=== PATIENT | male | born 2000 | race Caucasian/White ===

== ENCOUNTER 2019-01-15 14:14 | Emergency (ER) | payer OTHER, SELFPAY ==
[2019-01-15 14:18] VITALS: BP 139/81; PULSE 104; RESP 16; TEMP 37.3; O2SAT 99
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
[2019-01-15 14:50] VITALS: BP 139/81; PULSE 104; RESP 16; TEMP 37.3; O2SAT 99
== END 2019-01-15 14:50 | disposition home or self-care (01) ==
LOC: ER 15:05
PROVIDERS: Emergency Provider Nurse Practitioner Family; PCP Nurse Practitioner Family
DX: S90.811A Abrasion, right foot, initial encounter (principal); S91.332A Puncture wound without foreign body, left foot, initial encounter; W45.0XXA Nail entering through skin, initial encounter
CPT/HCPCS: 99283

== ENCOUNTER 2019-01-17 06:32 | Emergency (ER) | payer OTHER, SELFPAY ==
[2019-01-17 06:41] VITALS: BP 110/81; PULSE 81; RESP 16; TEMP 36.8; O2SAT 97
--- NOTE | 2019-01-17 06:48 | W.ED.GENAD ---
Discharge Plan Disposition Patient Disposition: HOME Condition: Good Discharge Details Chief Complaint: RashLesion Clinical Impression: Tick bite with subsequent removal of tick Primary Care Provider: Porsha Swanson ED Provider: Jordan Lloyd Meds and New Rx's Prescriptions: Continued dextroamphetamine-amphetamine [Adderall XR] 20 mg Capsule,Extended Release 24hr 20 mg PO BID RF: 0 hydroxyzine HCl 25 mg Tablet 25 mg PO PRNRF: 0 ciprofloxacin HCl 500 mg tablet 500 mg PO Q12H 3 Days Qty: 6 RF: 0 cephalexin 500 mg tablet 500 mg PO TID 3 Days Qty: 9 RF: 0 Discharge Instructions Instructions: Tick Bite (ED) Additional Instructions: Watch for signs of infection including local infection at the bite as well as systemic infection which would include fever, rash, joint aches, muscle aches, headache. See your primary care doctor or return to ED if problems Referrals: Porsha Swanson [Primary Care Provider] - Discharge Data Discharge Date/Time-TO BE ENTERED AT DEPARTURE: 01/17/19 07:04 Medical Decision Making Tick removed here with tick removal tool without difficulty. Examined under microscope and found to be blacklegged (deer) tick. Patient instructed on what to watch for in terms of local as well as systemic infection. Area cleaned with alcohol. Patient discharged home. HPI General Mode of arrival: ambulatory. Date/Time Provider Initiated Documentation: 01/17/19 06:47. Limitations to Documentation: no limitations. Information obtained by: patient. HPI Narrative: Patient presents to ED with a tick on anterior right shoulder. He noticed it this morning. He has been unable to disengage/remove it. He presents to ED. He has no other symptoms or complaints. Related Data Home Medications Medication Instructions Recorded Confirmed cephalexin 500 mg PO TID 3 Days #9 tab 01/15/19 01/17/19 ciprofloxacin HCl 500 mg PO Q12H 3 Days #6 tab 01/15/19 01/17/19 dextroamphetamine-amphetamine 20 mg PO BID 01/15/19 01/17/19 [Adderall XR] hydroxyzine HCl 25 mg PO PRN 01/15/19 Previous Rx's Medication Instructions Recorded cephalexin 500 mg PO TID 3 Days #9 tab 01/15/19 ciprofloxacin HCl 500 mg PO Q12H 3 Days #6 tab 01/15/19 Allergies Allergy/AdvReac Type Severity Reaction Status Date / Time bupropion [From Wellbutrin] Allergy Unverified 01/17/19 06:44 fluoxetine [From Prozac] Allergy Unverified 01/17/19 06:44 General Stated Complaint: RashLesion BRANDON: 5 Review of Systems Constitutional Denies fever(s), Denies headache(s) and Denies malaise ENT Denies headache(s) Integumentary/Breasts Denies erythema and Denies rash Neurologic Denies headache(s) [facility] Medical History ADHD (Chronic) Social History Smoking/Tobacco Use Status: Current every day Tobacco Type: cigarettes Alcohol Intake: current Alcohol Intake frequency: a few times a month Drug use: Occasionally Substance use type: marijuana Do you feel safe at home: Yes Do you feel safe in your relationship?: Yes Exam Const General: cooperative and no acute distress Orientation: alert and oriented x3 Skin Other: Small tick found on the right anterior shoulder. No surrounding erythema or discoloration of skin. Neuro General: alert, oriented x3, gait normal and no focal motor deficits Speech: speech normal Gait: normal gait Course Vital Signs Temperature 98.2 F 01/17/19 06:41 Pulse 81 01/17/19 06:41 Respiratory Rate 16 01/17/19 06:41 Blood Pressure 110/81 01/17/19 06:41 Pulse Oximetry 97 01/17/19 06:41 Temperature 98.2 F 01/17/19 06:41 Temperature Source Temporal Artery Scan 01/17/19 06:41 Pulse 81 01/17/19 06:41 Respiratory Rate 16 01/17/19 06:41 Respiratory Effort Non-Labored 01/17/19 06:42 Blood Pressure 110/81 01/17/19 06:41 Blood Pressure Position Sitting 01/17/19 06:41 Pulse Oximetry 97 01/17/19 06:41 Oxygen Delivery Method Room Air 01/17/19 06:41 Oxygen Flow Rate 0 01/17/19 06:41 Pain Level 1 01/17/19 06:41
--- NOTE | 2019-01-17 06:57 | ED.GENADUL_ITS ---
Discharge Plan Disposition Patient Disposition: HOME Condition: Good Discharge Details Chief Complaint: RashLesion Clinical Impression: Tick bite with subsequent removal of tick Primary Care Provider: Porsha Swanson ED Provider: Jordan Lloyd Meds and New Rx's Prescriptions: Continued dextroamphetamine-amphetamine [Adderall XR] 20 mg Capsule,Extended Release 24hr 20 mg PO BID RF: 0 hydroxyzine HCl 25 mg Tablet 25 mg PO PRNRF: 0 ciprofloxacin HCl 500 mg tablet 500 mg PO Q12H 3 Days Qty: 6 RF: 0 cephalexin 500 mg tablet 500 mg PO TID 3 Days Qty: 9 RF: 0 Discharge Instructions Instructions: Tick Bite (ED) Additional Instructions: Watch for signs of infection including local infection at the bite as well as systemic infection which would include fever, rash, joint aches, muscle aches, headache. See your primary care doctor or return to ED if problems Referrals: Porsha Swanson [Primary Care Provider] - Discharge Data Discharge Date/Time-TO BE ENTERED AT DEPARTURE: 01/17/19 07:04 Medical Decision Making Tick removed here with tick removal tool without difficulty. Examined under microscope and found to be blacklegged (deer) tick. Patient instructed on what to watch for in terms of local as well as systemic infection. Area cleaned with alcohol. Patient discharged home. HPI General Mode of arrival: ambulatory . Date/Time Provider Initiated Documentation: 01/17/19 06:47 . Limitations to Documentation: no limitations . Information obtained by: patient . HPI Narrative: Patient presents to ED with a tick on anterior right shoulder. He noticed it this morning. He has been unable to disengage/remove it. He presents to ED. He has no other symptoms or complaints. Related Data Home Medications Medication Instructions Recorded Confirmed cephalexin 500 mg PO TID 3 Days #9 tab 01/15/19 01/17/19 ciprofloxacin HCl 500 mg PO Q12H 3 Days #6 tab 01/15/19 01/17/19 dextroamphetamine-amphetamine 20 mg PO BID 01/15/19 01/17/19 [Adderall XR] hydroxyzine HCl 25 mg PO PRN 01/15/19 Previous Rx's Medication Instructions Recorded cephalexin 500 mg PO TID 3 Days #9 tab 01/15/19 ciprofloxacin HCl 500 mg PO Q12H 3 Days #6 tab 01/15/19 Allergies Allergy/AdvReac Type Severity Reaction Status Date / Time bupropion [From Wellbutrin] Allergy Unverified 01/17/19 06:44 fluoxetine [From Prozac] Allergy Unverified 01/17/19 06:44 General Stated Complaint: RashLesion BRANDON: 5 Review of Systems Constitutional Denies fever(s), Denies headache(s) and Denies malaise ENT Denies headache(s) Integumentary/Breasts Denies erythema and Denies rash Neurologic Denies headache(s) [facility] Medical History ADHD (Chronic) Social History Smoking/Tobacco Use Status: Current every day Tobacco Type: cigarettes Alcohol Intake: current Alcohol Intake frequency: a few times a month Drug use: Occasionally Substance use type: marijuana Do you feel safe at home: Yes Do you feel safe in your relationship?: Yes Exam Const General: cooperative and no acute distress Orientation: alert and oriented x3 Skin Other: Small tick found on the right anterior shoulder. No surrounding erythema or discoloration of skin. Neuro General: alert, oriented x3, gait normal and no focal motor deficits Speech: speech normal Gait: normal gait Course Vital Signs Temperature 98.2 F 01/17/19 06:41 Pulse 81 01/17/19 06:41 Respiratory Rate 16 01/17/19 06:41 Blood Pressure 110/81 01/17/19 06:41 Pulse Oximetry 97 01/17/19 06:41 Temperature 98.2 F 01/17/19 06:41 Temperature Source Temporal Artery Scan 01/17/19 06:41 Pulse 81 01/17/19 06:41 Respiratory Rate 16 01/17/19 06:41 Respiratory Effort Non-Labored 01/17/19 06:42 Blood Pressure 110/81 01/17/19 06:41 Blood Pressure Position Sitting 01/17/19 06:41 Pulse Oximetry 97 01/17/19 06:41 Oxygen Delivery Method Room Air 01/17/19 06:41 Oxygen Flow Rate 0 01/17/19 06:41 Pain Level 1 01/17/19 06:41
[2019-01-17 07:03] VITALS: BP 110/81; PULSE 81; RESP 16; TEMP 36.8; O2SAT 97
== END 2019-01-17 07:04 | disposition home or self-care (01) ==
PROVIDERS: Emergency Provider Emergency Medicine; PCP Nurse Practitioner Family
DX: S40.261A Insect bite (nonvenomous) of right shoulder, initial encounter (principal); W57.XXXA Bitten or stung by nonvenomous insect and other nonvenomous arthropods, initial encounter
CPT/HCPCS: 99282

== ENCOUNTER 2019-04-28 03:54 | Emergency (ER) | payer OTHER, SELFPAY ==
[2019-04-28 03:59] VITALS: PULSE 113; RESP 20; O2SAT 97
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
[2019-04-28] MEDS: HYDROmorphone 2 MG/ML VIAL 1 MG IM (04:19)
[2019-04-28] MEDS: Bacitracin 30 GM TUBE TP (04:29)
[2019-04-28] MEDS: HYDROcodone 5/Acetaminophen 325 TAB PO ×2 (04:34→04:37)
[2019-04-28 05:03] VITALS: PULSE 113; RESP 20; O2SAT 97
== END 2019-04-28 04:56 | disposition home or self-care (01) ==
PROVIDERS: Emergency Provider Emergency Medicine; PCP Nurse Practitioner Family
DX: T23.261A Burn of second degree of back of right hand, initial encounter (principal); T23.262A Burn of second degree of back of left hand, initial encounter; T23.251A Burn of second degree of right palm, initial encounter; T23.252A Burn of second degree of left palm, initial encounter; T31.0 Burns involving less than 10% of body surface; X08.8XXA Exposure to other specified smoke, fire and flames, initial encounter
CPT/HCPCS: 16020

== ENCOUNTER 2019-08-27 17:35 | Outpatient (REF) | payer OTHER, SELFPAY ==
[2019-08-29 11:05] LABS: HIV-1/2 Ag & Ab Screen Negative (Negative); Hepatitis C Ab w Rflx HCV PCR Negative (Negative)
[2019-08-29 12:04] LABS: Syphilis Serology (RPR) Negative (Negative)
[2019-08-29 15:18] LABS: Chlamydia Result Negative (Negative); GC Result Negative (Negative)
== END 2019-08-27 17:55 ==
LOC: NCHCN 17:35
PROVIDERS: PCP Nurse Practitioner Family; Visit Provider Specialist/Technologist Athletic Trainer
DX: Z11.59 Encounter for screening for other viral diseases (principal); Z11.3 Encounter for screening for infections with a predominantly sexual mode of transmission; Z11.4 Encounter for screening for human immunodeficiency virus [HIV]
CPT/HCPCS: 86803; 87389; 87491; 87591; 86592

== ENCOUNTER 2021-01-21 18:51 | Emergency (ER) | payer OTHER, SELFPAY ==
[2021-01-21 18:56] VITALS: BP 116/69; PULSE 97; RESP 14; TEMP 36.7; O2SAT 98
--- NOTE | 2021-01-21 19:00 | ED.GENADUL_ITS ---
Discharge Plan Disposition Patient Disposition: HOME Condition: Good Discharge Details Clinical Impression: Acute chest wall pain Primary Care Provider: Porsha Swanson ED Provider: Denise Cadena Home Meds and New Rx's Prescriptions: Continued bacitracin 500 unit/gram ointment 1 applic TP Q12H Qty: 30 RF: 0 hydrocodone-acetaminophen 5-325 mg tablet 1 - 2 tab PO Q6H PRN (Reason: pain) Qty: 10 RF: 0 Discharge Instructions Instructions: Chest Wall Pain (ED) Additional Instructions: Encourage deep breathing. Please avoid the twisting motions that cause her discomfort. You may use Tylenol and/or ibuprofen as needed for discomfort. You may try topical options such as lidocaine patches to help with pain. If you develop shortness of breath, difficulty breathing, abdominal pain, nausea/vomiting or other new/worsening symptom please seek care urgently once again. Please follow-up with primary care in the next 1 to 2 weeks for reevaluation. Referrals: Porsha Swanson [Primary Care Provider] - Medical Decision Making Patient is a pleasant 20-year-old male, accompanied by his mom, with chief complaint of left anterior lower rib pain. Reports that this is been inter mittent for the past 3 days and only with extension or rotation of this area. Denies any pain with deep inspiration. Patient is a smoker. No increase shortness of breath. Denies any cough. States that he did fall a few days ago. Does not believe that he injured himself in the area at that time. Denies any nausea or vomiting. No hematuria. Denies any change in bowel or bladder habits. Continues to work but reports that this does cause increased discomfort. On exam, patient appears nontoxic. Vital signs are stable. Patient denies any pain at this time when immobile. States the pain can be a max of 8 with provocative movements. Lungs are clear, no crepitus. No palpable defect or deformity. Abdomen is benign. No left upper quadrant pain. No CVA tenderness. Patient patient's history and exam is most consistent with musculoskeletal origin of his discomfort. He is having absolutely no pain with deep inspiration or when at rest. Pain is only with specified movements. His history and exam is not consistent with abdominal pathologies such as pancreatitis, pyelonephritis, kidney stone, ruptured or ischemic spleen. Patient is not hypoxic, he is PERC negative. Has not had infectious symptoms. Plan for x-ray, particularly given the patient's recent fall, to evaluate for any fracture. He declines any analgesics at this time. FINDINGS: Bones/joints: Normal. Soft tissues: Normal. IMPRESSION: No acute findings. Findings with the patient his mother. Patient I did discuss blood work. However, he does agree with my assessment that this is most likely musculoskelet al as it really is only given when the patient turns, particular to the right. He states that he is able to lift and continue to work. We did discuss a work note but he is declined. We did discuss return precautions, in particular symptoms of abdominal pathology, pulmonary pathology or worsening discomfort. Advise follow-up with primary care in the next 1 to 2 weeks for reevaluation. All questions and concerns were addressed and he is in agreement with this plan. HPI General Mode of arrival: ambulatory . Date/Time Provider Initiated Documentation: 01/21/21 18:51 . Limitations to Documentation: no limitations . Information obtained by: patient, family (mom) and RN notes reviewed . History of Present Illness 20 year old M presents to the emergency department with the chief complaint of rib pain, described as mild (reports no pain currently, with rotational movement to the right pain 8/10), Quality is described as aching, and is localized to the chest. Patient reports no radiation. Patient started experiencing this day(s) (3) and it has been intermittent. Immobilization improves symptom(s), Movement worsens symptoms . Patient notes no other symptoms.. Patient did receive the following treatments prior to arrival, none Related Data Home Medications Medication Instructions Recorded Confirmed bacitracin 1 applic TP Q12H #30 gm 04/28/19 hydrocodone-acetaminophen 1 - 2 tab PO Q6H PRN #10 tab 04/28/19 Previous Rx's Medication Instructions Recorded bacitracin 1 applic TP Q12H #30 gm 04/28/19 hydrocodone-acetaminophen 1 - 2 tab PO Q6H PRN #10 tab 04/28/19 Allergies Allergy/AdvReac Type Severity Reaction Status Date / Time bupropion [From Wellbutrin] Allergy Unverified 01/21/21 18:59 fluoxetine [From Prozac] Allergy Unverified 01/21/21 18:59 General Stated Complaint: Orthopedic BRANDON: 3 Review of Systems Constitutional Constitutional: Reports as per HPI, Denies chills, Denies fatigue, Denies fever(s) and Denies headache(s) ENT Ears, Nose, Mouth, and Throat: Denies headache(s) Cardiovascular Cardiovascular: Reports as per HPI, Reports chest pain (chest wall pain with rotation) and Denies dyspnea Respiratory Respiratory: Reports as per HPI, Denies cough, Denies hemoptysis, Denies pain on inspiration, Denies pain with cough and Denies dyspnea Gastrointestinal Gastrointestinal: Reports as per HPI, Denies abdominal pain, Denies change in bowel habits, Denies cramping, Denies nausea and Denies vomiting Genitourinary Genitourinary: Denies system reviewed and no additional complaints, except as documented (patient denies any change in urinary habits), Denies hematuria and Denies flank pain Musculoskeletal Musculoskeletal: Reports as per HPI and Denies back pain Integumentary/Breasts Skin/Breast: Reports as per HPI and Denies rash Neurologic Neurologic: Reports as per HPI and Denies headache(s) Endocrine Endocrine: Denies fatigue [facility] Medical History (Updated 01/21/21 @ 20:14 by GENEVA Sorto) ADHD Social History Smoking/Tobacco Use Status: Current every day Tobacco Type: cigarettes Smoking risk assessment performed?: Yes Alcohol Intake: current Alcohol Intake frequency: a few times a month Drug use: Occasionally Substance use type: marijuana Do you feel safe at home: Yes Do you feel safe in your relationship?: Yes Exam Const General: cooperative, healthy appearing, comfortable, no acute distress and well developed Nutritional Appearance: average body habitus and well nourished Orientation: alert and awake [facility] Head: normal to inspection Mouth: moist mucous membranes Chest Chest: normal inspection of the chest, normal palpation of entire chest wall, no crepitus, no localized rib tenderness and No rash Chest/axillae images: 1. area of discomfort. No pain elicited with palpation Resp Effort & Inspection: normal respiratory effort, able to speak in complete sentences and no respiratory distress Auscultation: clear to auscultation bilaterally, no rales, no rhonchi and no wheezes Cardio Rate: regular rate Rhythm: regular rhythm Heart Sounds: S1 normal and S2 normal GI Inspection: normal to inspection Palpation: soft, no hepatosplenomegaly, not firm, no guarding, no hernias, no masses, no pulsatile masses, not rigid and nontender Percussion: normal to percussion Auscultation: normal bowel sounds Back/Spine/Pelvis Back: no CVA tenderness Skin General skin exam: no rashes or lesions noted Trauma: no lacerations or abrasions Neuro General: patient alert and patient awake Cognition: normal cognition Speech: speech normal Gait: normal gait Psych Appearance: grossly normal and well kempt Mental Status: mental status grossly normal Speech and Movement: speech and movement normal Course Vital Signs Vital signs: Vital Signs Temperature 36.7 C 01/21/21 18:56 Pulse 97 H 01/21/21 18:56 Respiratory Rate 14 01/21/21 18:56 Blood Pressure 116/69 01/21/21 18:56 Pulse Oximetry 98 01/21/21 18:56 Temperature 36.7 C 01/21/21 18:56 Temperature Source Skin 01/21/21 18:56 Pulse 97 H 01/21/21 18:56 Respiratory Rate 14 01/21/21 18:56 Blood Pressure 116/69 01/21/21 18:56 Blood Pressure Position Sitting 01/21/21 18:56 Pulse Oximetry 98 01/21/21 18:56 Oxygen Delivery Method Room Air 01/21/21 18:56 Oxygen Flow Rate 0 01/21/21 18:56 Pain Level 8 01/21/21 18:56
--- NOTE | 2021-01-21 19:00 | DI.RAD_ITS ---
Exam(s) XR RIBS LT W PA LAT CHEST EXAM: XR RIBS LT W PA LAT CHEST CLINICAL HISTORY: low anterior left rib pain with movement TECHNIQUE: COMPARISON: No exams were available for comparison FINDINGS: PA and lateral chest and 3 additional views of the left ribs were obtained. The heart is not enlarge d. Lungs are clear and well expanded. No pleural effusion or pneumothorax. No rib fracture or othe r lesion identified. IMPRESSION: RADIATION DOSE DELIVERED: Total DLP
--- NOTE | 2021-01-21 20:06 | DI.VRAD_ITS ---
PROCEDURE INFORMATION: Exam: XR Left Ribs Exam date and time: 01/21/2021 7:13 PM Age: 20 years old Clinical indication: Other: Low anterior left rib pain with movement TECHNIQUE: Imaging protocol: XR Left ribs. Views: 2 views. COMPARISON: No relevant prior studies available. FINDINGS: Bones/joints: Normal. Soft tissues: Normal. IMPRESSION: No acute findings. PROCEDURE INFORMATION: Exam: XR Chest Exam date and time: 01/21/2021 7:13 PM Age: 20 years old Clinical indication: Other: Low anterior left rib pain with movement TECHNIQUE: Imaging protocol: XR of the chest. Views: 2 views. COMPARISON: No relevant prior studies available. FINDINGS: Lungs: Unremarkable. No consolidation. Pleural spaces: Unremarkable. No pleural effusion. No pneumothorax. Heart/Mediastinum: Unremarkable. No cardiomegaly. Bones/joints: Unremarkable. IMPRESSION: No acute findings. Dictated and Authenticated by: Peter Gracia MD. Ordering:PARRISH Walker MD
== END 2021-01-21 20:17 | disposition home or self-care (01) ==
PROVIDERS: Emergency Provider Physician Assistant; PCP Nurse Practitioner Family
DX: R07.82 Intercostal pain (principal)
CPT/HCPCS: 99283; 71046; 71100; 99284

== ENCOUNTER 2021-10-03 13:36 | Emergency (ER) | payer OTHER, SELFPAY ==
[2021-10-03 13:39] VITALS: BP 131/74; PULSE 72; RESP 18; TEMP 36.3; O2SAT 99
--- NOTE | 2021-10-03 14:00 | DI.RAD_ITS ---
Exam(s) XR TOE LT GREAT EXAM: XR TOE LT GREAT CLINICAL HISTORY: laceration. TECHNIQUE: 2D digital imaging was performed. COMPARISON: No exams were available for comparison FINDINGS: Three views of the left great toe reveal no evidence of fracture nor dislocation. No radiopaque fore ign body. No degenerative changes. No osseous lesions IMPRESSION: No significant osseous findings. DATA REPOSITORY: RADIATION DOSE DELIVERED:
--- NOTE | 2021-10-03 14:24 | DI.VRAD_ITS ---
PROCEDURE INFORMATION: Exam: XR Left Toe(s) Exam date and time: 10/03/2021 2:06 PM Age: 21 years old Clinical indication: Other: Lt great toe laceration TECHNIQUE: Imaging protocol: XR Left toes. Views: Minimum 2 views. COMPARISON: No relevant prior studies available. FINDINGS: Bones/joints: Bony alignment is anatomic without evidence for fracture or dislocation. Oblique view reveals linear laceration along the medial dorsal aspect of the great toe. No radiopaque foreign body identified. Soft tissues: See Bones/joints finding. IMPRESSION: Soft tissue injury. No evidence for fracture. Dictated and Authenticated by: Shandra Carrera MD. Ordering:LORENA Holland MD
[2021-10-03] MEDS: Lidocaine 1% Multi-Dose 50 ML VIAL (15:00)
--- NOTE | 2021-10-03 15:11 | ED.GENADUL_ITS ---
Discharge Plan Disposition Patient Disposition: HOME Condition: Stable Discharge Details Clinical Impression: Laceration of toe Primary Care Provider: Porsha Swanson ED Provider: Amalia Mcmullen Home Meds and New Rx's Prescriptions: No Action No Known Home Meds 0RF Discharge Instructions Instructions: Laceration (ED) Additional Instructions: Suture removal in 12 days Refrain from bending Wear caution Ibuprofen 600 mg every 8 hours with food as needed for pain Tylenol 650 mg every 4-6 hours as needed for discomfort Return spreading redness, fever, worsening pain Keep dry for 24 hours, do not submerge in water until the sutures are removed Change dressing every 48 hours Referrals: Prosha Swanson [Primary Care Provider] - Medical Decision Making Patient tolerated suture placement without incident X-ray did not show evidence of acute abnormality Return precautions discussed and patient understanding No indication for antibiotics at this time No evidence of neurovascular injury Range of motion intact placed in cast shoe Medical Records Medical records reviewed: Yes I reviewed the patient's medical records. Lab Data Lab results reviewed: Yes I reviewed the patient's lab results. ECG Data Prior ECG tracings: available for review HPI General Date/Time Provider Initiated Documentation: 10/03/21 14:05 . HPI Narrative: This 21-year-old male presents for laceration of his toe. States his tetanus is up-to-date. Denies any strength or sensation change. Cut it with a knife accidentally. Denies any additional injuries. Event occurred just prior to arrival. Related Data Home Medications Medication Instructions Recorded Confirmed Unknown [No Known Home Meds] 10/03/21 10/03/21 Allergies Allergy/AdvReac Type Severity Reaction Status Date / Time bupropion [From Wellbutrin] Allergy Unverified 10/03/21 13:41 fluoxetine [From Prozac] Allergy Unverified 10/03/21 13:41 General Stated Complaint: Laceration BRANDON: 4 Review of Systems All systems reviewed & are unremarkable except as noted in HPI and below PFSH All Active Problems (Updated 10/03/21 @ 15:07 by GENEVA Chauhan) Acute chest wall pain (Acute) Laceration of toe (Acute) Medical History (Updated 10/03/21 @ 15:07 by GENEVA Chauhan) ADHD Social History Smoking/Tobacco Use Status: Current every day Tobacco Type: cigarettes Smoking risk assessment performed?: Yes Alcohol Intake: current Alcohol Intake frequency: a few times a month Drug use: Occasionally Substance use type: marijuana Do you feel safe at home: Yes Do you feel safe in your relationship?: Yes Exam Const General: cooperative, comfortable and no acute distress Extrem Ankle/foot/toe images: 1. 1 inch laceration, rest capillary refill, sensation intact distally Course Vital Signs Vital signs: Vital Signs Temperature 36.3 C L 10/03/21 13:39 Pulse 72 10/03/21 13:39 Respiratory Rate 18 10/03/21 13:39 Blood Pressure 131/74 10/03/21 13:39 Pulse Oximetry 99 10/03/21 13:39 Temperature 36.3 C L 10/03/21 13:39 Temperature Source Skin 10/03/21 13:39 Pulse 72 10/03/21 13:39 Respiratory Rate 18 10/03/21 13:39 Respiratory Effort Non-Labored 10/03/21 13:42 Blood Pressure 131/74 10/03/21 13:39 Blood Pressure Position Sitting 10/03/21 13:39 Pulse Oximetry 99 10/03/21 13:39 Oxygen Delivery Method Room Air 10/03/21 13:39 Oxygen Flow Rate 0 10/03/21 13:39 Pain Level 7 10/03/21 13:39 Procedures Laceration Laceration 1: Site: lower extremity Side (If applicable): left Size (cm): 2.5 Description: linear Depth: simple, single layer Local Anesthetic: Lidocaine 1% Amount of anesthesia used (mL): 3 Number of sutures: 5 Technique: simple, interrupted
== END 2021-10-03 15:31 | disposition home or self-care (01) ==
PROVIDERS: Emergency Provider Physician Assistant; PCP Nurse Practitioner Family
DX: S91.112A Laceration without foreign body of left great toe without damage to nail, initial encounter (principal); W26.0XXA Contact with knife, initial encounter
CPT/HCPCS: 12001; 99283; 73660

== ENCOUNTER 2022-12-29 19:33 | Emergency (ER) | payer SELFPAY ==
[2022-12-29] VITALS (10 sets, daily range): BP systolic 106–129; BP diastolic 65–83; PULSE 76–99; RESP 13–29; TEMP 36.4; O2SAT 96–100
--- NOTE | 2022-12-29 19:30 | DI.RAD_ITS ---
Exam(s) XR PORTABLE CHEST AP EXAM: XR PORTABLE CHEST AP CLINICAL HISTORY: od, post narcan TECHNIQUE: 2D digital imaging was performed of the chest. One image was obtained. An AP view was ob tained. COMPARISON: CR,XR XR RIBS LT W PA LAT CHEST from 01/21/2021 FINDINGS: MEDIASTINUM: Normal. HEART: Normal. PULMONARY VASCULATURE: Normal. LUNGS: Clear. PLEURAL SPACE: No pleural effusion or pneumothorax. BONE:Within normal limits for the patient's age. OTHER FINDINGS:Normal. IMPRESSION: No acute pulmonary findings. DATA REPOSITORY: RADIATION DOSE DELIVERED:
[2022-12-29 19:48] LABS: Abs Immature Grans 0.03 10^3/uL (0.0-0.06); Absolute Basophil Count 0.04 10^3/uL (0.0-0.2); Absolute Eosinophil Count 0.09 10^3/uL (0.0-0.7); Absolute Lymphocyte Count 2.85 10^3/uL (1.2-3.4); Absolute Monocyte Count 0.86 10^3/uL (0.1-0.8); Absolute Neutrophil Count 5.99 10^3/uL (1.2-6.7); Basophils % 0.4; Eosinophils % 0.9; HCT 44.2 % (40.0-50.0); HGB 14.7 g/dL (13.5-17.5); Immature Grans % 0.3; Lymphocytes % 28.9; MCH 29.6 pg (27.0-33.0); MCHC 33.3 % (32.0-36.0); MCV 89 fL (80-95); MPV 10.3 fL (8.0-11.0); Monocytes % 8.7; Neutrophils % 60.8; Platelet Count 222 10^3/uL (130-400); RBC 4.97 10^6/uL (4.36-5.78); RDW 12.9 % (11.8-14.1); RDW-SD 42.1 fL; WBC 9.86 10^3/uL (4.4-10.8)
[2022-12-29 20:07] LABS: ALT 28 U/L (16-63); AST 26 U/L (15-37); Albumin 4.5 g/dL (3.4-5.0); Alkaline Phosphatase 92 U/L (46-116); Anion Gap 7.8 mmol/L (3-11); BUN 10 mg/dL (7-18); Bilirubin, Total 0.6 mg/dL (0.2-1.0); CO2 29.2 mmol/L (21.0-32.0); CREATININE 1.4 mg/dL (0.70-1.30); Calcium 9.4 mg/dL (8.5-10.1); Chloride 97 mmol/L (98-107); Estimated GFR 72.43 (mL/min/1.73m2); Glucose 191 mg/dL (74-106); Sodium 134 mmol/L (136-145); Total Protein 8.5 g/dL (6.4-8.2)
--- NOTE | 2022-12-29 20:41 | ED.GENADUL_ITS ---
Discharge Plan Disposition Patient Disposition: Home Condition: Improving Discharge Details Chief Complaint: DrugWithdr/MAT Clinical Impression: Overdose Primary Care Provider: Porsha Swanson ED Provider: Florentin Bustamante Home Meds and New Rx's Prescriptions: No Action No Known Home Meds Discharge Instructions Instructions: Adult Overdose (ED) Additional Instructions: Please follow-up with your primary care physician. Please return to the emergency department for any worsening symptoms Medical Decision Making 22-year-old male brought in for likely opioid overdose, found apneic and cyanotic, resuscitation underway on arrival, Narcan given in the field with immediate response, patient alert oriented maintaining airway tolerating secretions no respiratory distress. No hypoxia, normotensive, afebrile nontoxic. Patient endorses smoking marijuana and drinking some beers tonight. Collateral from bystanders believe that he may have smoked fentanyl. Patient stripped of wet clothing placed under Lowell hugger. Basic labs to be obtained, chest x-ray close reassessment. If patient remains alert oriented with no respiratory distress consider discharge home. 21: 07 patient resting comfortably no acute distress alert oriented tolerating secretions no respiratory distress. Labs imaging largely unremarkable. Patient wants to leave. Patient attempted to take out his IV. HPI General Date/Time Provider Initiated Documentation: 12/29/22 19:39 . HPI Narrative: 22-year-old male brought in by EMS for apnea in the setting of likely drug overdose. Patient found cyanotic apneic chest compressions actively being performed by bystanders, bystanders redosing patient with water to try to wake him up, patient responded to 4 mg of Narcan endorsing that he was smoking marijuana, collateral from bystanders stated that while he was smoking was likely fentanyl. Related Data Home Medications Medication Instructions Recorded Confirmed Unknown [No Known Home Meds] 10/03/21 12/29/22 Allergies Allergy/AdvReac Type Severity Reaction Status Date / Time bupropion [From Wellbutrin] Allergy Unverified 12/29/22 19:45 fluoxetine [From Prozac] Allergy Unverified 12/29/22 19:45 General Stated Complaint: DrugWithdr/MAT BRANDON: 2 Review of Systems Narrative: Review of Systems Constitutional: Altered mental status Eyes: negative ENT: negative Cardiovascular: negative Respiratory: Respiratory arrest Gastrointestinal: negative : negative Musculoskeletal: negative Skin: negative Neurologic: negative Psych: negative PFSH All Active Problems (Updated 12/29/22 @ 21:09 by Florentin Bustamante MD) Acute chest wall pain (Acute) Overdose (Acute) Medical History (Updated 12/29/22 @ 21:09 by Florentin Bustamante MD) ADHD Social History Smoking/Tobacco Use Status: Current every day Tobacco Type: cigarettes Smoking risk assessment performed?: Yes Alcohol Intake: current Alcohol Intake frequency: a few times a month Drug use: Daily Substance use type: marijuana Do you feel safe at home: Yes Do you feel safe in your relationship?: Yes Exam Narrative Exam Narrative: Physical Examination General: alert, awake, cooperative, shivering HEENT: normocephalic, atraumatic; PERRL, EOM intact, conjunctiva normal; no nasal discharge; moist mucous membranes, oral and pharyngeal mucosa normal, tolerating secretions Neck: supple, trachea midline; full ROM Chest: normal to inspection Respiratory: normal respiratory effort, speaking in full sentences, clear to auscultation, no wheezing, rales or rhonchi Cardiac: regular rate, regular rhythm, S1S2 intact, no murmurs rubs or gallops GI: abdomen soft, non-tender, non-distended; no palpable mass or hepatosplenomegaly Skin: no lesions, rashes or trauma appreciated; cool to the touch Neuro: AAOx3, normal speech, moving all extremities Psych: Appropriate mood and affect Course Vital Signs Vital signs: Vital Signs Temperature 36.4 C L 12/29/22 19:36 Pulse 77 12/29/22 19:36 Respiratory Rate 17 12/29/22 19:36 Blood Pressure 129/83 12/29/22 19:36 Pulse Oximetry 100 12/29/22 19:36 Temperature 36.4 C L 12/29/22 19:36 Temperature Source Temporal Artery Scan 12/29/22 19:36 Pulse 77 12/29/22 19:36 Respiratory Rate 17 12/29/22 19:36 Respiratory Effort Normal 12/29/22 19:36 Respiratory Pattern Bradypnea 12/29/22 19:46 Blood Pressure 129/83 12/29/22 19:36 Blood Pressure Position Supine 12/29/22 19:36 Pulse Oximetry 100 12/29/22 19:36 Oxygen Delivery Method Room Air 12/29/22 19:36 Oxygen Flow Rate 0 12/29/22 19:36 Pain Level 3 12/29/22 19:36 Lab/Test Results Lab/Test Results: Laboratory Tests Range/Units 12/29/22 12/29/22 19:40 19:40 WBC (4.4-10.8) 10^3/uL 9.86 RBC (4.36-5.78) 10^6/uL 4.97 Hgb (13.5-17.5) g/dL 14.7 Hct (40.0-50.0) % 44.2 MCV (80-95) fL 89 MCH (27.0-33.0) pg 29.6 MCHC (32.0-36.0) % 33.3 RDW (11.8-14.1) % 12.9 Plt Count (130-400) 10^3/uL 222 MPV (8.0-11.0) fL 10.3 Immature Gran % 0.3 Neutrophils % 60.8 Lymphocytes % 28.9 Monocytes % 8.7 Eosinophils % 0.9 Basophils % 0.4 Nucleated RBC % (0.0-0.3) % 0.0 Absolute Neutrophils (1.2-6.7) 10^3/uL 5.99 Absolute Lymphocytes (1.2-3.4) 10^3/uL 2.85 Absolute Monocytes (0.1-0.8) 10^3/uL 0.86 H Absolute Eosinophils (0.0-0.7) 10^3/uL 0.09 Absolute Basophils (0.0-0.2) 10^3/uL 0.04 Sodium (136-145) mmol/L 134 L Potassium (3.5-5.1) mmol/L 4.0 Chloride (98-107) mmol/L 97 L Carbon Dioxide (21.0-32.0) mmol/L 29.2 Anion Gap (3-11) mmol/L 7.8 BUN (7-18) mg/dL 10 Creatinine (0.70-1.30) mg/dL 1.4 H Est GFR (CKD-EPI 2020) (mL/min/1.73m2) 72.43 Glucose (74-106) mg/dL 191 H Calcium (8.5-10.1) mg/dL 9.4 Total Bilirubin (0.2-1.0) mg/dL 0.6 AST (15-37) U/L 26 ALT (16-63) U/L 28 Alkaline Phosphatase (46-116) U/L 92 Total Protein (6.4-8.2) g/dL 8.5 H Albumin (3.4-5.0) g/dL 4.5 PAWSS Have you Been Recently Intoxicated or Drunk Within the Last 30 days?: Yes Have you Ever Experienced Previous Episodes of Alcohol Withdrawal?: No Have you ever Experienced Withdrawal Seizures?: No Have you ever Experienced Delirium Tremens(DT)s?: No Have you ever undergone Alcohol Rehabilitation Treatment (i.e, inpt ot outpatient treatment programs)?: No Have you ever Experienced Blackouts?: No Have you ever Combined Alcohol with other Downers within the last 90 days?: No Have you ever Combined Alcohol with any other Substance of Abuse during the last 90 days?: Yes Positive Blood Alcohol level on Presentation? [PCS.BAL]: Yes Evidence of Increased Autonomic Activity (i.e. HR>120, tremor, sweating, agitation, nausea)?: No Result: 4
--- NOTE | 2022-12-29 21:21 | DI.VRAD_ITS ---
PROCEDURE INFORMATION: Exam: XR Chest Exam date and time: 12/29/2022 8:54 PM Age: 22 years old Clinical indication: Other: Od, post narcan TECHNIQUE: Imaging protocol: Radiologic exam of the chest. Views: 1 view. COMPARISON: CR XR RIBS LT W PA LAT CHEST 01/21/2021 7:43 PM FINDINGS: Lungs: Unremarkable. No consolidation. Pleural spaces: Unremarkable. No pleural effusion. No pneumothorax. Heart/Mediastinum: Unremarkable. No cardiomegaly. Bones/joints: Unremarkable. IMPRESSION: No acute findings. Dictated and Authenticated by: Chavez Grimes MD. Ordering:PMARILIA Lerma MD
== END 2022-12-29 21:21 | disposition home or self-care (01) ==
LOC: ER 21:32
PROVIDERS: Emergency Provider Emergency Medicine; PCP Nurse Practitioner Family
DX: T65.91XA Toxic effect of unspecified substance, accidental (unintentional), initial encounter (principal); F10.90 Alcohol use, unspecified, uncomplicated; F12.90 Cannabis use, unspecified, uncomplicated
CPT/HCPCS: 80053; 80307; 99283; 71045; 85025